=== PATIENT | male | born 1940 ===

== ENCOUNTER 2017-12-22 05:43 | Day surgery (SDC) | payer MEDICARE, MEDICAID ==
[~2017-12-22] VITALS: Ht 165.1 cm; Wt 74.8 kg
[2017-12-22] VITALS (8 sets, daily range): BP systolic 124–136; BP diastolic 68–78
[~2017-12-22 05:43] MED LIST: METOPROLOL SUC100 MG ORAL; PROCARDIA XL30 MG ORAL; SIMVASTATIN10 MG ORAL
[2017-12-22] MEDS ORDERED: LOSARTAN POTAS100 MG ORAL (06:36)
[2017-12-22] MEDS ORDERED: LORAZEPAM0.5 MG ORAL (06:36)
[2017-12-22] MEDS ORDERED: JENTADUETO 2.51 EACH PO (06:36)
[2017-12-22] MEDS ORDERED: TRAZODONE HCL50 MG ORAL (06:36)
[2017-12-22] MEDS ORDERED: TAMSULOSIN HCL0.4 MG ORAL (06:36)
[2017-12-22] MEDS ORDERED: ASPIR 8181 MG ORAL (06:36)
[2017-12-22] MEDS ORDERED: CLONIDINE HCL0.1 MG PO (06:36)
[2017-12-22] MEDS ORDERED: FINASTERIDE5 MG ORAL (06:36)
[2017-12-22] MEDS ORDERED: DOK100 M1 PO (06:36)
[2017-12-22] MEDS: ceFAZolin sod 1 GM in NS 55 ML IVPB ONE (07:00)
[2017-12-22] MEDS ORDERED: Iothalamate Meglumine 60% 30ML INJ ONE (07:02)
[2017-12-22] MEDS ORDERED: Midazolam 2mg/2ml Inj ONE (07:15)
[2017-12-22] MEDS ORDERED: fentaNYL 100 mcg/2 mL IV ONE (07:15)
[2017-12-22] MEDS ORDERED: Propofol 200mg/20ml IV ONE (07:15)
[2017-12-22] MEDS ORDERED: Lidocaine 1% MPF 10mg/ml 5ml ONE (07:15)
--- NOTE | 2017-12-22 07:23 | Anethesia Preoperative Eval ---
Anesthesia Pre-op PMH/ROS General Date of Evaluation: Dec 22, 2017 Time of Evaluation: 07:20 Anesthesiologist: Alina Landaverde CRNA ASA Score: ASA 3 Mallampati Score Class I : Soft palate, uvula, fauces, pillars visible Class II: Soft palate, uvula, fauces visible Class III: Soft palate, base of uvula visible Class IV: Only hard plate visible Mallampati Classification: Class II Surgeon: Savage Diagnosis: LEFT renal stone Surgical Procedure: LEFT extracorporeal shock wave lithotripsy Anesthesia History: none Social History: smoking Family History: no anesthesia problems Allergies: Coded Allergies: No Known Allergies (Unverified , 12/22/17) Medications: see eMAR Past Medical History Cardiovascular: Reports: HTN, CAD, other - Hypercholesterolemia; Denies: ND, valve dz, arrhythmia Pulmonary: Denies: asthma, COPD, SHELBIE, other Gastrointestinal/Genitourinary: Denies: GERD, CRI, ESRD, other Neurologic/Psychiatric: Denies: dementia, CVA, depression/anxiety, TIA, other Endocrine: Reports: DM; Denies: hypothyroidism, steroids, other HEENT: Reports: cataract (R), other - LEFT eye trauma; Denies: cataract (L), glaucoma, GRINDSTONE (L), GRINDSTONE (R) Hematology/Immune: Reports: anemia; Denies: DVT, bleeding disorder, other Musculoskeletal/Integumentary: Reports: DDD; Denies: OA, RA, DJD, edema, other PMH Narrative: As above PSxH Narrative: Renal calcanus removal, colon polypectomy, LEFT eye lid surggery, RIGHT cataract Anesthesia Pre-op Phys. Exam Physician Exam Last Vital Signs Date Time Temp Pulse Resp B/P (MAP) Pulse Ox O2 Delivery O2 Flow Rate FiO2 12/22/17 06:18 Room Air 12/22/17 06:17 97.6 69 18 129/72 95 97.6 Constitutional: NAD Neurologic: CN 2-12 intact Cardiovascular: RRR Respiratory: CTA Gastrointestinal: S/NT/ND Airway Exam Mallampati Score: Class II MO: full Neck: No limitations TMD: >3 FB ROM: full Teeth: intact Dentures: lower - fixed; no upper Anesthesia Pre-op A/P Labs see chart Accucheck 114 Studies Pre-op Studies: EKG - NSR, CXR - No acute disease Risk Assessment & Plan Assessment: ASA 3 ok to proceed Plan: GA LMA Status Change Before Surgery: No Alina Haynes CRNA Dec 22, 2017 07:23
[2017-12-22] MEDS ORDERED: NS Irrig 1000ml ONE (07:30)
[2017-12-22] MEDS ORDERED: NS Irrig 4000ml IRRIG ONE (07:30)
[2017-12-22] MEDS ORDERED: Sterile Water Irrig 1000ml IRRIG ONE (07:30)
[2017-12-22] MEDS ORDERED: LR 1000ml ONE (07:30)
--- NOTE | 2017-12-22 08:01 | Pre-Procedure Note/Attestation ---
Pre-Procedure Note/Attestation Complete Prior to Procedure Planned Procedure: left Procedure Narrative: eswl rirs left Indications for Procedure Pre-Operative Diagnosis: left kidney stone Attestation I attest that I discussed the nature of the procedure; its benefits; risks and complications; and alternatives (and the risks and benefits of such alternatives ), prior to the procedure, with the patient (or the patient's legal public service representative). I attest that, if there was a reasonable possibility of needing a blood transfusion, the patient (or the patient's legal public service representative) was given the [facility] standardized written summary, pursuant to the Jean-Claude Jimmy Blood Safety Act ([place] Health and Safety Code # 1645, as amended). I attest that I re-evaluated the patient just prior to the surgery and that there has been no change in the patient's H&P, except as documented below: Hiram Wan MD Dec 22, 2017 08:01
[2017-12-22] MEDS ORDERED: Metoclopramide 10mg/2ml Inj ONE (08:20)
[2017-12-22] MEDS ORDERED: Labetalol 5mg/ml 20ml vial IV PRN (08:30)
[2017-12-22] MEDS ORDERED: oxyCODONE HCL/Acetaminophen 5/325mg ORAL PRN (08:30)
--- NOTE | 2017-12-22 08:36 | Brief Operative Note ---
Immediate Post Operative Note Operative Note Pre-op Diagnosis: left kidney stone Procedure: eswl rirs left Post-op Diagnosis: same Post-op Diagnosis: same as pre-op Surgeon: Hiram Wan Anesthesia: general Specimen: none Complications: none Condition: stable Fluids: 500 Estimated Blood Loss: none Implant(s) used?: No Hiram Wan MD Dec 22, 2017 08:36
--- NOTE | 2017-12-22 10:31 | Immediate Post-Op Evaluation ---
Immediate Post-Op Evalulation Immediate Post-Op Evalulation Procedure: LEFT extracorporeal shockwave lithotripsy Date of Evaluation: Dec 22, 2017 Time of Evaluation: 08:43 IV Fluids: LR 700 ml Blood Pressure Systolic: 136 Blood Pressure Diastolic: 78 Pulse Rate: 65 Respiratory Rate: 12 O2 Sat by Pulse Oximetry: 100 Temperature (Fahrenheit): 97.5 Pain Score (1-10): 2 Nausea: No Vomiting: No Complications none; FBS in PACU 116 Patient Status: awake, reacts, patent Hydration Status: adequate Drug: Cefazolin 1 gm Given Within 1 Hr of Incision: Yes Time Given: 08:00 Alina Haynes CRNA Dec 22, 2017 10:31
--- NOTE | 2017-12-22 10:32 | 48 Hour Post Anesthesia Eval ---
Post Anesthesia Evaluation Procedure: LEFT extracorporeal shockwave lithotripsy Date of Evaluation: Dec 22, 2017 Time of Evaluation: 09:30 Blood Pressure Systolic: 124 0: 74 Pulse Rate: 63 Respiratory Rate: 20 Temperature (Fahrenheit): 97.4 O2 Sat by Pulse Oximetry: 95 Airway: patent Nausea: No Vomiting: No Pain Intensity: 0 Hydration Status: adequate Mental Status/LOC: patient returned to baseline Follow-up Care/Observations: per surgeon Post-Anesthesia Complications: none Follow-up care needed: ready to discharge Alina Haynes CRNA Dec 22, 2017 10:32
[2017-12-22] MEDS ORDERED: Norco 5mg/325mg tab ORAL PRN (16:01)
[2017-12-22] MEDS ORDERED: Tylenol #3 tab (300mg/30mg) ORAL PRN (16:01)
[2017-12-22] MEDS ORDERED: D5 1/2NS 1,000 ML IV SCH (16:01)
[2017-12-22] MEDS ORDERED: HYDROmorphone 1mg/ml Carpuject SUBQ PRN (16:01)
--- NOTE | 2017-12-23 23:00 | Operative Note - Dictated ---
DATE OF OPERATION: 12/22/2017 PREOPERATIVE DIAGNOSIS: Left renal stone. POSTOPERATIVE DIAGNOSIS: Left renal stone. OPERATION: Extracorporeal shock wave lithotripsy combined with retrograde intrarenal surgery with . SURGEON: Hiram Wan M.D. ANESTHESIA: General. FINDINGS: Large stones in the left kidney. INDICATIONS FOR SURGERY: The patient had some mild left flank pain. He was found to have close to 1 cm stone in the collecting system of the left kidney. Treatment options were explained to him in great length including all potential complications, he signed a consent. DESCRIPTION OF PROCEDURE: He was brought to the operating room, placed in lithotomy position, and prepped and draped in standard fashion. Under general anesthesia, cystoscope was introduced into the bladder. Ureter was cannulated and exposure of the right renal pelvis was provided with a flexible ureteroscope, the stones were found, and extracorporeal shock wave lithotripsy was applied to both stones in the lower and middle calyx with great fragmentation. After that, procedure was terminated. The patient tolerated the procedure well. Sponge count and instrument count was correct. Hiram Wan M.D. DR: MALI JOB#: [id number] CC:
== END 2017-12-22 10:15 | disposition home or self-care (01) ==
LOC: SUR 05:43
DX: N20.0 Calculus of kidney (principal); E11.9 Type 2 diabetes mellitus without complications; E78.00 Pure hypercholesterolemia, unspecified; F17.200 Nicotine dependence, unspecified, uncomplicated; N40.0 Benign prostatic hyperplasia without lower urinary tract symptoms; D64.9 Anemia, unspecified; I25.10 Atherosclerotic heart disease of native coronary artery without angina pectoris; I10 Essential (primary) hypertension; M51.36 Other intervertebral disc degeneration, lumbar region
CPT/HCPCS: 82962; 94003; 94150; J2250; J2405; J2765